=== PATIENT | male | born 1940 | race Caucasian/White ===

== ENCOUNTER → 2018-08-07 | Outpatient (CLI) | payer MEDICARE, MEDICAID ==
[~2018-08-07] VITALS: Ht 165.1 cm; Wt 69.0 kg
[~2018-08-07] MED LIST: CALC667C PO; HEPARIN 1,000 UNITS/ML, 10ML ONE; LIDOCAINE-MPF 1%, 2ML INFIL ONE; METO25TA35 PO; PLEASE ENTER HEIGHT AND WEIGHT MC SCH; RIVA15TA PO; SODIUM CHLORIDE 0.9% 1,000 ML IV SCH
[2018-08-07 09:03] VITALS: BP 146/91
== END | disposition home or self-care (01) ==
LOC: CLISVCS 08:09 → OUT 08:09 → EDSTATUS 14:00
PROVIDERS: ATTEND Surgery Vascular Surgery
DX: N18.6 End stage renal disease (principal); Z53.9 Procedure and treatment not carried out, unspecified reason
CPT/HCPCS: 36415; 80047; 93005; J1644